=== PATIENT | female | born 1965 | race Caucasian/White ===

== ENCOUNTER → 2018-02-22 14:54 | Outpatient (CLI) | payer OTHER, SELFPAY ==
--- NOTE | 2018-02-22 | DI.MG.S_ITS ---
BILATERAL DIGITAL SCREENING MAMMOGRAM 3D/2D WITH CAD: 02/22/2018 CLINICAL: Routine screening. Comparison is made to exams dated: 07/16/2016 mammogram, 11/27/2014 mammogram, and 03/10/2013 mammogram - [facility]. There are scattered fibroglandular elements in both breasts. Current study was also evaluated with a Computer Aided Detection (CAD) system. There is a focal asymmetry in the right breast at 10 o'clock posterior depth. No other significant masses, calcifications, or other findings are seen in either breast. IMPRESSION: INCOMPLETE: NEEDS ADDITIONAL IMAGING EVALUATION The focal asymmetry in the right breast is indeterminate. Additional views with possible ultrasound are recommended. This exam was interpreted at Station ID: [id number]. NOTE: For mammograms, a report in lay terms will be sent to the patient. Approximately 15% of breast malignancies will not be visualized mammographically. In the management of a palpable breast mass, a negative mammogram must not discourage biopsy of a clinically suspicious lesion. Electronically Signed By: Cleo paul/joyce:02/22/2018 16:31:44 letter sent: Additional Imaging Needed ACR BI-RADS Category 0: Incomplete 3340F
== END ==
PROVIDERS: Family Provider Physician Assistant; PCP Physician Assistant; Visit Provider Physician Assistant
DX: Z12.31 Encounter for screening mammogram for malignant neoplasm of breast (principal)
CPT/HCPCS: 77063; 77067

== ENCOUNTER → 2018-03-15 08:27 | Outpatient (CLI) | payer OTHER, SELFPAY ==
--- NOTE | 2018-03-15 08:28 | DI.MG.S_ITS ---
UNILATERAL RIGHT DIGITAL DIAGNOSTIC MAMMOGRAM 3D/2D WITH ADDITIONAL VIEWS: 03/15/2018 CLINICAL: Additional evaluation requested from prior study. Comparison is made to exams dated: 02/22/2018 mammogram, 07/16/2016 mammogram, and 11/27/2014 mammogram - [facility]. There are scattered fibroglandular elements in right breast. There is a focal asymmetry in the right breast at 8 o'clock posterior depth. This is seen in additional views. No other significant masses or calcifications are seen in the breast. IMPRESSION: INCOMPLETE: NEEDS ADDITIONAL IMAGING EVALUATION The focal asymmetry in the right breast is indeterminate. An ultrasound is recommended. This exam was interpreted at Station ID: [id number]. NOTE: For mammograms, a report in lay terms will be sent to the patient. Approximately 15% of breast malignancies will not be visualized mammographically. In the management of a palpable breast mass, a negative mammogram must not discourage biopsy of a clinically suspicious lesion. Electronically Signed By: Cleo Liao M.D. lk/:03/15/2018 08:54:02 letter sent: Additional Imaging Needed ACR BI-RADS Category 0: Incomplete 3340F
--- NOTE | 2018-03-15 08:28 | DI.US.S_ITS ---
ULTRASOUND OF RIGHT BREAST: 03/15/2018 CLINICAL: Follow up from addtional views. Comparison is made to exams dated: 03/15/2018 mammogram, 02/22/2018 mammogram, and 07/16/2016 mammogram - [facility]. Color flow and real-time ultrasound of the right breast were performed on the areas of interest. Turner scale images of the real-time examination were reviewed. There is a 0.6 cm x 0.5 cm x 0.5 cm cluster of microcysts in the right breast at 9 o'clock middle depth. This correlates with mammography findings. IMPRESSION: PROBABLY BENIGN The 0.6 cm x 0.5 cm x 0.5 cm clustered microcysts in the right breast are probably benign. A follow-up mammogram and an ultrasound in 6 months is recommended to demonstrate stability. This exam was interpreted at Station ID: [id number]. Electronically Signed By: Cleo Liao M.D. lk/:03/15/2018 11:55:49 letter sent: Followup Recommended Ultrasound BI-RADS: 3 Probably benign
== END ==
PROVIDERS: Family Provider Physician Assistant; PCP Physician Assistant; Visit Provider Physician Assistant
DX: R92.8 Other abnormal and inconclusive findings on diagnostic imaging of breast (principal); N60.11 Diffuse cystic mastopathy of right breast
CPT/HCPCS: 76642; 77065; G0279

== ENCOUNTER → 2018-10-04 08:24 | Outpatient (CLI) | payer OTHER, SELFPAY ==
--- NOTE | 2018-10-04 08:28 | DI.US.S_ITS ---
LIMITED ULTRASOUND OF RIGHT BREAST: 10/04/2018 CLINICAL: 6 month follow-up of microcysts. Comparison is made to exams dated: 10/04/2018 mammogram, 03/15/2018 ultrasound, 03/15/2018 mammogram, and 02/22/2018 mammogram - [facility]. Real-time and Doppler ultrasound of the right breast 9-10 o'clock region were performed. Turner scale images of the real-time examination were reviewed. Previously described 0.6 cm probable cluster of microcysts in the right breast at 9 o'clock position seen on comparison ultrasound of 03/15/2018 cannot be identified on today's exam, and may have resolved. The previously noted focal asymmetry seen in the upper outer right breast at posterior depth seen on comparison screening mammogram of 02/22/2018 that was thought to correlate with the ultrasound findings of 03/15/2018 is also less prominent on the diagnostic mammography views performed earlier today. Targeted ultrasound also demonstrates no ultrasound correlate for the focal asymmetry in the upper outer right breast at anterior depth which also resolved with additional spot compression views performed immediately prior to this exam. IMPRESSION: PROBABLY BENIGN Previously described 0.6 cm probable cluster of microcysts in the right breast at 9 o'clock position seen on comparison ultrasound of 03/15/2018 cannot be identified on today's exam. A follow-up right diagnostic mammogram in 6 months is recommended to demonstrate stability of the focal asymmetry seen in the upper outer right breast at posterior depth (originally seen on comparison screening mammogram of 02/22/2018). Patient will also be due for screening mammography of the left breast at that time. The patient is advised to monitor her breasts and to return sooner for re-evaluation should she feel anything grow or change. This exam was interpreted at Station ID: [id number]. Electronically Signed By: Himanshu Eastman M.D. ecl/:10/04/2018 10:29:04 letter sent: Followup Recommended Ultrasound BI-RADS: 3 Probably benign
--- NOTE | 2018-10-04 08:28 | DI.MG.S_ITS ---
UNILATERAL RIGHT DIGITAL DIAGNOSTIC MAMMOGRAM 3D/2D SHORT-TERM FOLLOW-UP: 10/04/2018 CLINICAL: Patient returns for a 6 month follow up of the right breast. Comparison is made to exams dated: 03/15/2018 mammogram, 02/22/2018 mammogram, and 07/16/2016 mammogram - [facility]. There are scattered fibroglandular elements in right breast. The focal asymmetry seen in the upper outer right breast at posterior depth seen on comparison screening mammogram of 02/22/2018 is less prominent than on prior exams. There is a focal asymmetry in the upper outer right breast at anterior depth which resolved with spot compression views. IMPRESSION: INCOMPLETE: NEEDS ADDITIONAL IMAGING EVALUATION 1) The focal asymmetry seen in the upper outer right breast at posterior depth seen on comparison screening mammogram of 02/22/2018 is less prominent than on prior exams. A targeted ultasound is recommended for further evaluation. 2) The focal asymmetry in the upper outer right breast at anterior depth resolved with spot compression views. A targeted ultasound is recommended for further evaluation. This exam was interpreted at Station ID: [id number]. NOTE: For mammograms, a report in lay terms will be sent to the patient. Approximately 15% of breast malignancies will not be visualized mammographically. In the management of a palpable breast mass, a negative mammogram must not discourage biopsy of a clinically suspicious lesion. Electronically Signed By: Himanshu Eastman M.D. ecl/:10/04/2018 10:29:33 ACR BI-RADS Category 0: Incomplete 3340F
== END ==
PROVIDERS: PCP Physician Assistant; Visit Provider Physician Assistant
DX: R92.8 Other abnormal and inconclusive findings on diagnostic imaging of breast (principal); N64.89 Other specified disorders of breast
CPT/HCPCS: 76642; 77065; G0279

== ENCOUNTER → 2019-04-25 10:04 | Outpatient (CLI) | payer OTHER, SELFPAY ==
--- NOTE | 2019-04-25 | DI.US.S_ITS ---
LIMITED ULTRASOUND OF RIGHT BREAST: 04/25/2019 CLINICAL: 6 month follow-up the right breast. Comparison is made to exams dated: 04/25/2019 mammogram, 10/04/2018 ultrasound, 10/04/2018 mammogram, 03/15/2018 ultrasound, 03/15/2018 mammogram, and 02/22/2018 mammogram - [facility]. Color flow and real-time ultrasound of the right breast upper outer quadrant were performed. Turner scale images of the real-time examination were reviewed. Previously described 0.6 cm probable cluster of microcysts in the right breast at 9 o'clock position seen on comparison ultrasound of 03/15/2018 cannot be identified by current ultrasound of 04/25/19, and was also not seen on comparison ultrasound of 10/04/18, and appears resolved. Targeted ultrasound of the upper outer right breast demonstrates a 0.7 x 0.3 x 0.6 cm intramammary lymph node with no suspicious cortical thickening, preserved fatty hilum, and expected hilar vascularity on Doppler ultrasound in the right breast at 10:00 3 cm from the nipple. There is a 0.5 x 0.3 x 0.4 oval indistinct hypoechoic mass with adjacent mild vascularity (but no internal vascularity) on Doppler ultrasound in the right breast at 10:30 position 7 cm from the nipple. IMPRESSION: PROBABLY BENIGN 1) 0.5 x 0.3 x 0.4 oval indistinct hypoechoic mass with adjacent mild vascularity on Doppler ultrasound in the right breast at 10:30 position 7 cm from the nipple, most consistent with an intramammary lymph node or complicated cyst. This may or may not correlate with the asymmetry of the upper outer right breast at posterior depth seen on comparison mammography. A follow-up diagnostic mammogram and targeted ultrasound in 6 months is recommended to demonstrate stability. The patient is advised to monitor her breasts and to return sooner for re-evaluation should she feel anything grow or change. 2) 0.7 x 0.3 x 0.6 cm benign-appearing intramammary lymph node in the right breast at 10:00 3 cm from the nipple. This exam was interpreted at Station ID: [id number]. Electronically Signed By: Himanshu Eastman M.D. ecl/:04/25/2019 11:36:28 letter sent: Followup Recommended Ultrasound BI-RADS: 3 Probably benign
--- NOTE | 2019-04-25 10:05 | DI.MG.S_ITS ---
BILATERAL DIGITAL DIAGNOSTIC MAMMOGRAM 3D/2D: 04/25/2019 CLINICAL: Patient returns for 6 month follow up of right breast, due for bilateral exam. Comparison is made to exams dated: 10/04/2018 mammogram, 03/15/2018 mammogram, 02/22/2018 mammogram, 07/16/2016 mammogram, 03/15/2018 ultrasound, and 10/04/2018 ultrasound - [facility]. There are scattered fibroglandular elements in both breasts. Previously identified focal asymmetry seen in the upper outer right breast at posterior depth seen on comparison screening mammogram of 02/22/2018 is less prominent on the current exam than on prior exams. This demonstrated no ultrasound correlate on most recent comparison targeted right breast ultrasound of 10/04/18. No other significant masses, calcifications, or other findings are seen in either breast. IMPRESSION: INCOMPLETE: NEEDS ADDITIONAL IMAGING EVALUATION Previously identified focal asymmetry seen in the upper outer right breast at posterior depth seen on comparison screening mammogram of 02/22/2018 is less prominent on the current exam than on prior exams. This demonstrated no ultrasound correlate on most recent comparison targeted right breast ultrasound of 10/04/18. A targeted ultrasound is recommended for further evaluation. This exam was interpreted at Station ID: [id number]. NOTE: For mammograms, a report in lay terms will be sent to the patient. Approximately 15% of breast malignancies will not be visualized mammographically. In the management of a palpable breast mass, a negative mammogram must not discourage biopsy of a clinically suspicious lesion. Electronically Signed By: Himanshu Eastman M.D. ecl/:04/25/2019 10:53:37 ACR BI-RADS Category 0: Incomplete 3340F
== END ==
PROVIDERS: PCP Physician Assistant; Visit Provider Physician Assistant
DX: R92.8 Other abnormal and inconclusive findings on diagnostic imaging of breast (principal); N63.11 Unspecified lump in the right breast, upper outer quadrant; N64.89 Other specified disorders of breast
CPT/HCPCS: 76642; 77066; G0279

== ENCOUNTER → 2019-12-26 09:24 | Outpatient (CLI) | payer OTHER, SELFPAY ==
--- NOTE | 2019-12-26 09:48 | DI.MG.S_ITS ---
Patient Name: NOEMI WATSON date: 1965 Sex: F Attending Physician: Solo Indications: Date: 12/26/2019 09:33 At the request of: DEVANG TREJO Procedure: MM diagnostic mammo unilat RT UNILATERAL RIGHT DIGITAL DIAGNOSTIC MAMMOGRAM 3D/2D SHORT-TERM FOLLOWUP: 12/26/2019 CLINICAL: Short term follow up of the right breast. Comparison is made to exams dated: 04/25/2019 mammogram, 02/22/2018 mammogram, 07/16/2016 mammogram, and 10/04/2018 mammogram - [facility]. There are scattered fibroglandular elements in right breast. Previously identified focal asymmetry seen in the upper outer right breast is unchanged. No other significant masses or calcifications are seen in the breast. IMPRESSION: INCOMPLETE: NEEDS ADDITIONAL IMAGING EVALUATION Previously identified focal asymmetry seen in the upper outer right breast at posterior depth is unchanged when compared with prior exams and is considered statistically benign. Although this has demonstrated no ultrasound correlate on the prior studies, ultrasound to immediately follow this exam is nonetheless recommended to ensure sonographic stability. This ultrasound was scheduled to immediately follow the mammogram today. This exam was interpreted at Station ID: [id number]. NOTE: For mammograms, a report in lay terms will be sent to the patient. Approximately 15% of breast malignancies will not be visualized mammographically. In the management of a palpable breast mass, a negative mammogram must not discourage biopsy of a clinically suspicious lesion. Electronically Signed By: Reilly Prakash M.D. jr/:12/26/2019 14:57:56 ACR BI-RADS Category 0: Incomplete 3340F Continued Report - Page 2 of 2 Patient Name: NOEMI WATSON date: 1965 Sex: F Attending Physician: Solo Indications: Date: 12/26/2019 09:33 At the request of: DEVANG TREJO Procedure: MM diagnostic mammo unilat RT
--- NOTE | 2019-12-26 10:33 | DI.US.S_ITS ---
Patient Name: NOEMI WATSON date: 1965 Sex: F Attending Physician: Solo Indications: Date: 12/26/2019 11:02 At the request of: DEVANG TREJO Procedure: US breast RT limited ULTRASOUND OF RIGHT BREAST AND AXILLA: 12/26/2019 CLINICAL: Rt breast 6 month F/U. Comparison is made to exams dated: 12/26/2019 mammogram, 04/25/2019 ultrasound, 04/25/2019 mammogram, 10/04/2018 ultrasound, 10/04/2018 mammogram, and 03/15/2018 ultrasound [facility]. Color flow and real-time ultrasound of the right breast axilla were performed. Turner scale images of the real-time examination were reviewed. No significant abnormalities were seen sonographically in the right breast or the right axilla. IMPRESSION: NEGATIVE There is no sonographic evidence of malignancy. The asymmetry in the right breast, seen only on prior mammograms, is stable since 2018 and is statistically benign. Return to annual mammogram screening schedule is recommended. This exam was interpreted at Station ID: [id number]. Electronically Signed By: Reilly Prakash M.D. jr/:12/26/2019 11:13:15 letter sent: Normal Exam Ultrasound BI-RADS: 1 Negative
== END ==
PROVIDERS: PCP Physician Assistant; Referring Provider Physician Assistant; Visit Provider Physician Assistant
DX: R92.8 Other abnormal and inconclusive findings on diagnostic imaging of breast (principal); N64.89 Other specified disorders of breast
CPT/HCPCS: 76642; 77065; G0279

== ENCOUNTER → 2020-01-21 09:14 | Outpatient (CLI) | payer OTHER, SELFPAY ==
[2020-01-21 12:39] LABS: Alanine Aminotransferase 16 IU/L (<35); Albumin 4.2 g/dL (3.5-5.0); Albumin Globulin Ratio 1.4 (1.0-2.8); Alkaline Phosphatase 66 U/L (38-126); Aspartate Aminotransferase 19 IU/L (14-36); BUN Creatinine Ratio 18.9 (6-22); Bilirubin Total 0.6 mg/dL (0.2-1.3); Blood Urea Nitrogen 14 mg/dL (7-17); Calcium 9.9 mg/dL (8.4-10.2); Carbon Dioxide 30 mmol/L (22-32); Chloride 106 mmol/L (98-107); Cholesterol 148 mg/dL (140-199); Estimated Glomerular Filt Rate > 60.0 mL/min (>60); Globulin 2.9 g/dL (1.7-4.1); Glucose 96 mg/dL (70-100); HDL Cholesterol 44 mg/dL (40-60); HEMOLYSIS < 15 (0-50); LDL Cholesterol Calculated 83 mg/dL (<100); Potassium 4.3 mmol/L (3.4-5.1); Sodium 140 mmol/L (137-145); Total Protein 7.1 g/dL (6.3-8.2); Triglycerides 107 mg/dL (35-150)
== END ==
PROVIDERS: PCP Physician Assistant; Referring Provider Physician Assistant; Visit Provider Physician Assistant
DX: E78.5 Hyperlipidemia, unspecified (principal); Z82.49 Family history of ischemic heart disease and other diseases of the circulatory system
CPT/HCPCS: 36415; 80053; 80061

== ENCOUNTER → 2021-06-21 08:06 | Outpatient (CLI) | payer OTHER, SELFPAY ==
--- NOTE | 2021-06-21 08:09 | DI.MG.S_ITS ---
BILATERAL DIGITAL SCREENING MAMMOGRAM 3D/2D WITH CAD: 06/21/2021 CLINICAL: Routine screening. Comparison is made to exams dated: 12/26/2019 mammogram, 04/25/2019 mammogram, and 02/22/2018 mammogram - [facility]. There are scattered fibroglandular elements in both breasts. Current study was also evaluated with a Computer Aided Detection (CAD) system. No significant masses, calcifications, or other findings are seen in either breast. There has been no significant interval change. IMPRESSION: NEGATIVE There is no mammographic evidence of malignancy. A 1 year screening mammogram is recommended. This exam was interpreted at Station ID: [id number]. NOTE: For mammograms, a report in lay terms will be sent to the patient. Approximately 15% of breast malignancies will not be visualized mammographically. In the management of a palpable breast mass, a negative mammogram must not discourage biopsy of a clinically suspicious lesion. Electronically Signed By: Prakash Ulrich acr/joyce:06/21/2021 11:10:52 letter sent: Normal Exam ACR BI-RADS Category 1: Negative 3341F
== END ==
PROVIDERS: Referring Provider Physician Assistant; Visit Provider Physician Assistant
DX: Z12.31 Encounter for screening mammogram for malignant neoplasm of breast (principal)
CPT/HCPCS: 77063; 77067

== ENCOUNTER 2021-08-11 09:43 | Emergency (ER) | payer OTHER, SELFPAY ==
[2021-08-11 10:03] VITALS: BP 140/74; PULSE 85; RESP 16; TEMP 36.4; O2SAT 96; BMI 33.7
--- NOTE | 2021-08-11 10:06 | DI.RAD.S_ITS ---
PROCEDURE: XR FINGER LT MIN 2V INDICATIONS: Finger tangled in dog leash and pulled TECHNIQUE: AP hand, 2 views of the left 4th finger(s) acquired. COMPARISON: None. FINDINGS: Bones: There is a nondisplaced, oblique fracture of the left 4th finger middle phalanx without definite intra-articular extension. Overlying soft tissue edema. Remainder of the visualized osseous structures appear intact. No suspicious osseous lesions. Soft tissues: No suspicious soft tissue calcifications. IMPRESSION: Nondisplaced oblique fracture of the left 4th finger middle phalanx without definite intra-articular extension. Dictated by: Rohan Coe M.D. on 08/11/2021 at 9:25 Approved by: Rohan Coe M.D. on 08/11/2021 at 9:26
--- NOTE | 2021-08-11 10:13 | ED_ITS ---
HPI - Extremity Injury (Upper) General Chief Complaint: Extremity Injury, Upper Stated Complaint: Possible dislocated left ring finger Time Seen by Provider: 08/11/21 09:52 Source: patient Mode of arrival: Ambulatory Limitations: no limitations History of Present Illness HPI narrative: This is a 55-year-old female who comes in with concern for possible dislocation of her 4th finger on her left hand. Yesterday she was walking her dog another dog jumped out of a vehicle the dog's fur of were excited or fighting and patient fell onto her hand. She has had bruising at that finger she states it was quite painful yesterday it is improved today. She states majority of the pain is cervical the distal finger but she has bruising at the middle and distal interphalangeal joints. She does have some flexion extension a little bit more difficulty distally. Sensation throughout is intact according to the patient. She denies other injuries. 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 She is otherwise healthy. She does have Dupuytren's on the 5th finger of the right hand and has some cysts or nodules with her in her hands that she is aware of. She denies other major medical issues. No known drug allergies. She states she is having minimal to no pain at this time. No lacerations or cuts that she appreciates. Related Data Previous Rx's Medication Instructions Recorded triamcinolone acetonide 0.1 % 1 martha TOPICAL BID #45 gm 09/30/16 topical ointment Allergies Allergy/AdvReac Type Severity Reaction Status Date / Time No Known Drug Allergies Allergy Verified 08/11/21 10:06 Review of Systems Review of Systems ROS Unobtainable: All systems reviewed & are unremarkable except as noted in HPI and below Patient History Social History Smoking Status: Former smoker Smoking Status: Former smoker Substance Use Type: does not use Exam Narrative Exam Narrative: GENERAL: Alert and oriented x three, female in mild distress. HEENT: Head normocephalic, atraumatic, EOMI, pupils reactive, face symmetric, moist mucous membranes NECK: Supple, full range of motion EXTREMITIES: Normal range of motion except for slightly decreased flexion at the distal interphalangeal joint patient has slightly decreased at the middle interphalangeal joint but can flex and fully extend. She does have ecchymoses over the distal and middle interphalangeal joints. No other deformity is appreciated. There may be some mild step-off at the middle interphalangeal joint with the most distal portion feeling slightly lower. No lacerations, abrasions or skin injury is noted. Cap refill less than 2 seconds in all 5 fingers. Clubbing or edema. Neurovascularly intact. Patient does have contracture of her 5th finger on her right hand consistent with her history of Dupuytren's. NEUROLOGICAL: Cranial nerves II through XII grossly intact. Moving all extremities SKIN: Warm, dry, no petechiae, no rashes or lesions otherwise noted. Initial Vital Signs Initial Vital Signs: Vital Signs Temperature 97.6 F 08/11/21 10:03 Pulse Rate 85 08/11/21 10:03 Respiratory Rate 16 08/11/21 10:03 Blood Pressure 140/74 08/11/21 10:03 Pulse Oximetry 96 08/11/21 10:03 Course Orders Ordered: ED Orders 08/11/21 10:06 XR finger LT min 2V Stat Vital Signs Vital signs: Vital Signs - 8 hr 08/11/21 10:03 Temperature 97.6 F Pulse Rate 85 Respiratory Rate 16 Blood Pressure 140/74 Pulse Oximetry 96 MDM - Extremity Injury (Upper) Imaging Data Extremity x-ray #1: Radiologist's Impression: [address] [address] XRay Report Signed Patient: Jos Carey MR#: [id number] : 1965 Acct:[id number] Age/Sex: 55 / F Date of Service: 08/11/21 Loc: ED Accession Number: [id number] ?? Procedure: XR finger LT min 2V Ordering Provider: Danette Macario D.O. PROCEDURE:? XR FINGER LT MIN 2V ? INDICATIONS:? Finger tangled in dog leash and pulled ? TECHNIQUE:? AP hand, 2 views of the left 4th finger(s) acquired.? ? COMPARISON:? None. ? FINDINGS:? ? Bones:? There is a nondisplaced, oblique fracture of the left 4th finger middle phalanx without definite intra-articular extension.? Overlying soft tissue edema. Remainder of the visualized osseous structures appear intact.? No suspicious osseous lesions. ? Soft tissues:? No suspicious soft tissue calcifications.? ? IMPRESSION:? Nondisplaced oblique fracture of the left 4th finger middle phalanx without definite intra-articular extension. ? ? Dictated by: Rohan Coe M.D. on 08/11/2021 at 9:25 ? ? Approved by: Rohan Coe M.D. on 08/11/2021 at 9:26? MDM Narrative Medical decision making narrative: 55-year-old female with injury to her left ring finger with fracture that does not appear to be intra-articular. Patient was splinted, follow-up with orthopedics. All questions answered. Patient is neurovascular intact pre and post. Discharge Plan Departure Patient Disposition: Home Clinical Impression: Fracture of phalanx of finger Instructions: DI for Finger Fracture Activity Restrictions/Additional Instructions: Follow-up with orthopedic surgery for recheck. Call for an appointment. You may take Tylenol up to a 1000 mg every 8 hours and or ibuprofen 600 mg every 6 hours as needed for pain. Splint Care: Keep splint clean and dry. Elevated affected body part to decrease swelling. OK to use ice pack on the affected body part. Use for 15-20 minutes each time, for 5-6x per day. If you develop worsening pain, numbness, tingling, discoloration of the affected body part, loosen the splint by loosening the SHELLEY wrap, and either see your doctor for an urgent re-assessment, or return to the Emergency Department. Return to the Emergency Department for any new or worsening symptoms. Prescriptions: No Action triamcinolone acetonide 0.1 % ointment 1 martha Topical BID Qty: 45 1RF Referrals: Terrence Martin MD [Physician] -
== END 2021-08-11 11:05 | disposition home or self-care (01) ==
PROVIDERS: Emergency Provider Emergency Medicine
DX: S62.655A Nondisplaced fracture of middle phalanx of left ring finger, initial encounter for closed fracture (principal); W18.30XA Fall on same level, unspecified, initial encounter
CPT/HCPCS: 29130; 73140; 99281; 99283

== ENCOUNTER → 2022-08-30 10:39 | Outpatient (CLI) | payer OTHER, SELFPAY ==
--- NOTE | 2022-08-30 10:40 | DI.MG.S_ITS ---
BILATERAL DIGITAL SCREENING MAMMOGRAM 3D/2D WITH CAD: 08/30/2022 CLINICAL: Routine screening. Comparison is made to exams dated: 06/21/2021 mammogram, 04/25/2019 mammogram, 10/04/2018 mammogram, and 02/22/2018 mammogram - [facility]. There are scattered areas of fibroglandular density in both breasts (category b / 25%-50% glandular tissue). Current study was also evaluated with a Computer Aided Detection (CAD) system. No significant masses, calcifications, or other findings are seen in either breast. There has been no significant interval change. IMPRESSION: NEGATIVE There is no mammographic evidence of malignancy. A 1 year screening mammogram is recommended. Based on the Tyrer Cuzick model (a risk assessment model) the patient's lifetime risk is 5.3% and her 10 year risk is 1.9%. According to the ACR, ACS, and NCCN guidelines, an annual breast MRI exam along with mammogram is recommended if the patient's lifetime risk is 20% or greater. This exam was interpreted at Station ID: [id number]. NOTE: For mammograms, a report in lay terms will be sent to the patient. Approximately 15% of breast malignancies will not be visualized mammographically. In the management of a palpable breast mass, a negative mammogram must not discourage biopsy of a clinically suspicious lesion. Electronically Signed By: Thierry smalls/joyce:09/01/2022 09:09:26 letter sent: Normal Exam ACR BI-RADS Category 1: Negative 3341F
== END ==
PROVIDERS: PCP Family Medicine; Referring Provider Family Medicine; Visit Provider Family Medicine
DX: Z12.31 Encounter for screening mammogram for malignant neoplasm of breast (principal); Z80.3 Family history of malignant neoplasm of breast
CPT/HCPCS: 77063; 77067

== ENCOUNTER → 2023-02-04 08:10 | Outpatient (CLI) | payer OTHER, SELFPAY ==
[2023-02-04 09:30] LABS: Add Manual Diff / Slide Review NO; Basophils Absolute Auto 0 /uL (0-100); Basophils Percent Auto 0.6 % (0-2); Eosinophils Absolute Auto 200 /uL (0-450); Eosinophils Percent Auto 3.6 % (2-4); Hematocrit 41.3 % (36-46); Hemoglobin 14.2 g/dL (12.0-16.0); Lymphocytes Absolute Auto 1400 /uL (1100-4500); Lymphocytes Percent Auto 33.8 % (25-40); Mean Corpuscular HGB Conc 34.5 % (30-36); Mean Corpuscular Volume 92.8 fL (80-100); Monocytes Absolute Auto 400 /uL (0-900); Monocytes Percent Auto 9.8 % (3-14); Neutrophils Absolute Auto 2200 /uL (1500-7000); Neutrophils Percent Auto 52.2 % (50-75); Platelet Count 166 X10^3/uL (150-400); Red Blood Cell Count 4.45 X10^6/uL (4.0-5.2); Red Cell Distribution Width 12.5 % (11.6-14.8); White Blood Cell Count 4.2 X10^3/uL (4.5-11.0)
[2023-02-04 09:50] LABS: Alanine Aminotransferase 22 IU/L (<35); Albumin 4.2 g/dL (3.5-5.0); Albumin Globulin Ratio 1.7 (1.0-2.8); Alkaline Phosphatase 61 U/L (38-126); Aspartate Aminotransferase 23 IU/L (14-36); BUN Creatinine Ratio 21.3 (6-22); Bilirubin Total 0.5 mg/dL (0.2-1.3); Blood Urea Nitrogen 16 mg/dL (7-17); Calcium 9.6 mg/dL (8.4-10.2); Carbon Dioxide 30 mmol/L (22-32); Chloride 105 mmol/L (98-107); Cholesterol 178 mg/dL (140-199); Estimated Glomerular Filt Rate > 60 mL/min (>60); Globulin 2.5 g/dL (1.7-4.1); Glucose 95 mg/dL (70-100); HDL Cholesterol 48 mg/dL (40-60); HEMOLYSIS < 15 (0-50); LDL Cholesterol Calculated 113 mg/dL (<100); Potassium 4.1 mmol/L (3.4-5.1); Sodium 139 mmol/L (137-145); Total Protein 6.7 g/dL (6.3-8.2); Triglycerides 85 mg/dL (35-150)
[2023-02-04 10:04] LABS: Vitamin D 25 Hydroxy (D3) 39.2 ng/mL (30.0-100.0)
[2023-02-04 10:18] LABS: TSH w/ Reflex to FT4 1.55 uIU/mL (0.47-4.68)
[2023-02-05 11:19] LABS: Fecal Immunochemical Test Negative (Negative)
== END ==
PROVIDERS: PCP Family Medicine; Referring Provider Family Medicine; Visit Provider Family Medicine
DX: D64.9 Anemia, unspecified (principal); E55.9 Vitamin D deficiency, unspecified; E03.9 Hypothyroidism, unspecified; E66.9 Obesity, unspecified; E78.5 Hyperlipidemia, unspecified; Z12.11 Encounter for screening for malignant neoplasm of colon
CPT/HCPCS: 36415; 80053; 80061; 82274; 82306; 83036; 84443; 85025

== ENCOUNTER → 2023-09-26 09:32 | Outpatient (CLI) | payer OTHER, SELFPAY ==
--- NOTE | 2023-09-26 | DI.MG.S_ITS ---
BILATERAL DIGITAL SCREENING MAMMOGRAM 3D/2D WITH CAD: 09/26/2023 CLINICAL: Routine screening. Comparison is made to exams dated: 08/30/2022 mammogram, 06/21/2021 mammogram, 12/26/2019 mammogram, and 04/25/2019 mammogram - [facility] [place]. There are scattered areas of fibroglandular density in both breasts (category b / 25%-50% glandular tissue). Current study was also evaluated with a Computer Aided Detection (CAD) system. No significant masses, calcifications, or other findings are seen in either breast. There has been no significant interval change. IMPRESSION: NEGATIVE There is no mammographic evidence of malignancy. A 1 year screening mammogram is recommended. Based on the Tyrer Cuzick model (a risk assessment model) the patient's lifetime risk is 5.3% and her 10 year risk is 2.0%. According to the ACR, ACS, and NCCN guidelines, an annual breast MRI exam along with mammogram is recommended if the patient's lifetime risk is 20% or greater. This exam was interpreted at Station ID: [id number]. NOTE: For mammograms, a report in lay terms will be sent to the patient. Approximately 15% of breast malignancies will not be visualized mammographically. In the management of a palpable breast mass, a negative mammogram must not discourage biopsy of a clinically suspicious lesion. Electronically Signed By: Cleo paul/joyce:09/28/2023 13:26:57 letter sent: Normal Exam ACR BI-RADS Category 1: Negative [id number]
== END ==
LOC: MAMMO 09:33
PROVIDERS: PCP Family Medicine; Referring Provider Family Medicine; Visit Provider Family Medicine
DX: Z12.31 Encounter for screening mammogram for malignant neoplasm of breast (principal); R92.323 Mammographic fibroglandular density, bilateral breasts
CPT/HCPCS: 77063; 77067

== ENCOUNTER → 2024-03-19 08:00 | Outpatient (CLI) | payer OTHER, SELFPAY ==
[2024-03-19 08:47] LABS: Add Manual Diff / Slide Review NO; Basophils Absolute Auto 0 /uL (0-100); Basophils Percent Auto 0.5 % (0-2); Eosinophils Absolute Auto 200 /uL (0-450); Eosinophils Percent Auto 3.5 % (2-4); Hematocrit 41.9 % (36-46); Lymphocytes Absolute Auto 1400 /uL (1100-4500); Lymphocytes Percent Auto 31.7 % (25-40); Mean Corpuscular HGB Conc 33.5 % (30-36); Mean Corpuscular Hemoglobin 31.4 PG (26-34); Mean Corpuscular Volume 93.8 fL (80-100); Monocytes Absolute Auto 400 /uL (0-900); Monocytes Percent Auto 8.6 % (3-14); Neutrophils Absolute Auto 2500 /uL (1500-7000); Neutrophils Percent Auto 55.7 % (50-75); Platelet Count 181 X10^3/uL (150-400); Red Blood Cell Count 4.47 X10^6/uL (4.0-5.2); Red Cell Distribution Width 12.2 % (11.6-14.8); White Blood Cell Count 4.6 X10^3/uL (4.5-11.0)
[2024-03-19 09:00] LABS: Alanine Aminotransferase 18 IU/L (<35); Albumin 4.2 g/dL (3.5-5.0); Albumin Globulin Ratio 1.8 (1.0-2.8); Alkaline Phosphatase 55 U/L (38-126); Aspartate Aminotransferase 22 IU/L (14-36); BUN Creatinine Ratio 21.9 (6-22); Bilirubin Total 0.7 mg/dL (0.2-1.3); Blood Urea Nitrogen 16 mg/dL (7-17); Calcium 9.7 mg/dL (8.4-10.2); Carbon Dioxide 28 mmol/L (22-32); Chloride 107 mmol/L (98-107); Cholesterol 152 mg/dL (140-199); Estimated Glomerular Filt Rate > 60 mL/min (>60); Globulin 2.3 g/dL (1.7-4.1); Glucose 99 mg/dL (80-110); HDL Cholesterol 49 mg/dL (40-60); HEMOLYSIS 22 (0-50); LDL Cholesterol Calculated 83 mg/dL (<100); Potassium 4.4 mmol/L (3.4-5.1); Sodium 140 mmol/L (137-145); Total Protein 6.5 g/dL (6.3-8.2); Triglycerides 98 mg/dL (35-150)
[2024-03-19 09:05] LABS: High Sensitivity CRP - Cardiac 0.4 mg/L (1.0-3.0)
== END ==
PROVIDERS: PCP Family Medicine; Referring Provider Family Medicine; Visit Provider Family Medicine
DX: D72.819 Decreased white blood cell count, unspecified (principal); E66.9 Obesity, unspecified; E78.00 Pure hypercholesterolemia, unspecified
CPT/HCPCS: 36415; 80053; 80061; 85025; 86140

== ENCOUNTER → 2024-11-05 10:24 | Outpatient (CLI) | payer OTHER, SELFPAY ==
--- NOTE | 2024-11-05 10:25 | DI.MG.S_ITS ---
MM screening mammo BI: 11/05/2024. BI-RADS: 1 CLINICAL: 59-year old female for bilateral screening mammogram. Tyrer-Cuzick lifetime risk of 6.9%. No personal or first-degree family history of breast cancer. The patient had a prior right breast biopsy. PRIOR EXAMS 09/26/2023, 08/30/2022, 06/21/2021, 12/26/2019, 04/25/2019, 10/04/2018, 03/15/2018, 02/22/2018, 07/16/2016, 11/27/2014. MAMMOGRAPHY TECHNIQUE: 2D and 3D (tomosynthesis) digital mammographic views obtained, with additional images as needed for full coverage. Current study was also evaluated with a Computer Aided Detection (CAD) system. DENSITY B. There are scattered areas of fibroglandular density. MAMMOGRAPHY FINDINGS Bilateral: No suspicious mass, asymmetry, microcalcification, or other abnormality seen. No significant change from comparison. IMPRESSION: * No evidence of malignancy. RECOMMENDATIONS Bilateral * Annual screening mammography. OVERALL ASSESSMENT CATEGORY BI-RADS-1: Negative. The [employer] recommends annual screening mammography beginning at age 40 for women with average risk of breast cancer. ELECTRONICALLY SIGNED: Radha Sevilla M.D. on 11/08/2024 at 03:07:24 PM PT Interpreting Station ID: [id number]
== END ==
PROVIDERS: PCP Family Medicine; Referring Provider Family Medicine; Visit Provider Family Medicine
DX: Z12.31 Encounter for screening mammogram for malignant neoplasm of breast (principal)
CPT/HCPCS: 77063; 77067